=== PATIENT | female | born 1980 | race African-American/Black ===

== ENCOUNTER 2019-01-14 15:48 | Inpatient (IN) ==
[2019-01-14 16:29] LABS: Basophils % 0.2 % (0.0-0.8); Eosinophils # 0.2 10*3/uL (0.0-0.87); Eosinophils % 1.5 % (0.00-10.9); Hematocrit 29.3 VOL% (35.7-47.0); Hemoglobin 9.2 GM/DL (12.0-16.0); Immature Granulocytes % 0.4 %; Immature Granulocytes Absolute 0.04 #; Lymphocytes # 2.6 10*3/uL (1.4-4.0); Mean Corpuscular HGB Conc 31.4 GM/DL (32-36); Mean Corpuscular Volume 84.4 FL (87-102); Monocytes % 4.4 % (1.7-12.7); Neutrophils % 68.5 % (38.7-73.9); Platelet Count 312 T/CUMM (130-400); Red Blood Count 3.47 MC/CUMM (3.8-5.5); Red Cell Distribution Width 15.2 % (9.3-17.3); White Blood Count 10.3 T/CUMM (4-12)
[2019-01-14 17:04] LABS: Apearance,Urine CLOUDY (Clear); Bacteria,Urine Many /HPF (Few); Bilirubin,Urine Negative (Negative); Blood, Urine Small mg/dL (Negative); Glucose,Urine (UA) Negative (Negative); Ketones,Urine Negative (Negative); Mucus,Urine Many /LPF (Occasional); Nitrite,Urine Negative (Negative); Protein,Urine 30 MG/DL; RBC,Urine 4 /HPF (0-4); Squamous Epithelial Cell,Urine Occasional /HPF (0-10); Urine Color Yellow (Yellow); Urine Specific Gravity 1.018 (1.001-1.035); Urine Urobilinogen < 2.0 EU/DL (0.2-1.0); WBC,Urine 238 /HPF (0-6)
[2019-01-14] MEDS ORDERED: ONDANSETRON 4 MG/2 ML VIAL IV ONE ×2 (17:08→19:08)
[2019-01-14] MEDS ORDERED: MORPHINE 4 MG/1 ML VIAL IV STA (17:08)
[2019-01-14] MEDS ORDERED: cefTRIAXone 1,000 MG in SODIUM CHLORIDE 0.9% 100 ML IV STA (17:29)
[2019-01-14 18:03] LABS: Alanine Aminotransferase 23 U/L (13-56); Albumin 3.3 G/DL (3.4-5.0); Alkaline Phosphatase 98 U/L (45-117); Aspartate Amino Transferase 16 U/L (0-37); Bilirubin,Total < 0.39 MG/DL (0.2-1.0); Blood Urea Nitrogen 21 MG/DL (7-18); Calcium 8.6 MG/DL (8.5-10.1); Estimated Glom Filtration Rate 74 ML/MIN; Glucose 130 MG/DL (74-106); Osmolality,Calculated 287.1 MOS/KG (273-304); Total Protein 7.4 G/DL (6.4-8.3)
[2019-01-14] MEDS ORDERED: NITROGLYCERIN SL 0.4 MG TABLET SL STA (18:13)
[2019-01-14] MEDS ORDERED: POTASSIUM CHLORIDE 20 MEQ/15 ML UDCUP PO ONE (18:23)
[2019-01-14] MEDS ORDERED: HYDROmorphone 2 MG/1 ML VIAL IV STA (19:08)
[2019-01-14] MEDS: niCARdipine INJ 25 MG in SODIUM CHLORIDE 0.9% 240 ML IV PRN ×2 (19:36→23:34)
[2019-01-14] MEDS ORDERED: ALBUTEROL 2.5 MG/3 ML NEB RESP TX PRN (20:16)
[2019-01-14] MEDS ORDERED: ACETAMINOPHEN 325 MG TABLET PO PRN (20:16)
[2019-01-14 20:52] LABS: INR 0.9; PT Patient Result 9.5 SECS (9.6-12.2)
[2019-01-14] MEDS: SODIUM CHLORIDE 0.45% 1,000 ML IV SCH (22:03)
[2019-01-14] MEDS: ENOXAPARIN 40 MG/0.4 ML SYRINGE SUBCUT SCH (22:28)
[2019-01-14] MEDS: MORPHINE 4 MG/1 ML VIAL IV PRN (22:28)
[2019-01-14] MEDS: FAMOTIDINE 20 MG/2 ML VIAL IV SCH (22:28)
[2019-01-14 22:43] LABS: Thyroid Stimulating Hormone 2.43 uIU/ml (0.358-3.74)
[2019-01-15] MEDS ORDERED: CYCLOBENZAPRINE 10 MG TABLET PO PRN (02:06)
[2019-01-15] MEDS: niCARdipine INJ 25 MG in SODIUM CHLORIDE 0.9% 240 ML IV PRN ×3 (02:20→08:04)
[2019-01-15 05:13] LABS: Alanine Aminotransferase 24 U/L (13-56); Alkaline Phosphatase 106 U/L (45-117); Aspartate Amino Transferase 14 U/L (0-37); Bilirubin,Total < 0.39 MG/DL (0.2-1.0); Blood Urea Nitrogen 14 MG/DL (7-18); Calcium 8.4 MG/DL (8.5-10.1); Estimated Glom Filtration Rate 93 ML/MIN; Glucose 133 MG/DL (74-106); HDL Cholesterol 80 MG/DL (40-60); Osmolality,Calculated 283.3 MOS/KG (273-304); Risk Ratio 1.79; Total Protein 7.7 G/DL (6.4-8.3); Triglycerides 137 MG/DL (2-150); VLDL CHOLESTEROL 27.4 MG/DL
[2019-01-15] MEDS ORDERED: MAGNESIUM SULF RIDER 2 GM in PREMIX 1 EACH IV PRN (05:23)
[2019-01-15] MEDS ORDERED: MAGNESIUM SULF RIDER 4 GM in PREMIX 1 EACH IV PRN (05:23)
[2019-01-15] MEDS: POTASSIUM CHLORIDE 20 MEQ TABLET PO PRN ×5 (05:52→21:59)
[2019-01-15] MEDS: MORPHINE 4 MG/1 ML VIAL IV PRN ×2 (06:03→15:38)
[2019-01-15] MEDS: SODIUM CHLORIDE 0.45% 1,000 ML IV SCH ×3 (06:56→18:08)
[2019-01-15] MEDS ORDERED: ASPIRIN CHEW 81 MG TABLET PO SCH (09:00)
[2019-01-15] MEDS ORDERED: MORPHINE 4 MG/1 ML VIAL IV ONE (09:24)
[2019-01-15] MEDS ORDERED: KETOROLAC 30 MG/1 ML VIAL IV ONE (09:31)
[2019-01-15] MEDS: carvediloL 6.25 MG TABLET PO SCH ×4 (10:20→21:28)
[2019-01-15] MEDS: GABAPENTIN 100 MG CAPSULE PO SCH ×3 (10:20→21:28)
[2019-01-15] MEDS: FAMOTIDINE 20 MG/2 ML VIAL IV SCH ×2 (10:23→21:27)
[2019-01-15] MEDS: ONDANSETRON 4 MG/2 ML VIAL IV PRN (10:28)
[2019-01-15] MEDS: CYCLOBENZAPRINE 10 MG TABLET PO PRN (14:50)
[2019-01-15] MEDS: cefTRIAXone 1,000 MG in SYRINGE 1 EACH IV SCH ×3 (18:08→18:18)
[2019-01-15] MEDS: ENOXAPARIN 40 MG/0.4 ML SYRINGE SUBCUT SCH (21:27)
[2019-01-16] MEDS: carvediloL 6.25 MG TABLET PO SCH ×4 (03:59→21:10)
[2019-01-16] MEDS: SODIUM CHLORIDE 0.45% 1,000 ML IV SCH (04:04)
[2019-01-16] MEDS: MORPHINE 4 MG/1 ML VIAL IV PRN ×4 (04:14→19:36)
[2019-01-16 04:51] LABS: Basophils % 0.1 % (0.0-0.8); Eosinophils # 0.3 10*3/uL (0.0-0.87); Eosinophils % 4.2 % (0.00-10.9); Hematocrit 26.7 VOL% (35.7-47.0); Hemoglobin 8.2 GM/DL (12.0-16.0); Immature Granulocytes % 0.3 %; Immature Granulocytes Absolute 0.02 #; Lymphocytes # 2.2 10*3/uL (1.4-4.0); Lymphocytes % 31.6 % (21.3-54.2); Mean Corpuscular HGB Conc 30.7 GM/DL (32-36); Mean Corpuscular Volume 86.4 FL (87-102); Mean Platelet Volume 9.7 FL (9.6-12.0); Monocytes % 7.1 % (1.7-12.7); Neutrophils % 56.7 % (38.7-73.9); Platelet Count 277 T/CUMM (130-400); Red Blood Count 3.09 MC/CUMM (3.8-5.5); Red Cell Distribution Width 15.5 % (9.3-17.3); White Blood Count 6.9 T/CUMM (4-12)
[2019-01-16 05:20] LABS: % Iron Saturation 16.2 % (18-50); Alanine Aminotransferase 21 U/L (13-56); Albumin 2.6 G/DL (3.4-5.0); Alkaline Phosphatase 68 U/L (45-117); Aspartate Amino Transferase 15 U/L (0-37); Bilirubin,Total < 0.39 MG/DL (0.2-1.0); Blood Urea Nitrogen 13 MG/DL (7-18); Calcium 7.6 MG/DL (8.5-10.1); Estimated Glom Filtration Rate 74 ML/MIN; Glucose 86 MG/DL (74-106); Iron 47 UG/DL (50-170); Iron Binding Capacity 290 UG/DL (250-450); Osmolality,Calculated 273.7 MOS/KG (273-304); Total Protein 6.8 G/DL (6.4-8.3)
[2019-01-16] MEDS: KETOROLAC 15 MG/1 ML VIAL IV PRN ×2 (05:53→19:37)
[2019-01-16] MEDS ORDERED: MAGNESIUM SULF RIDER 2 GM in PREMIX 1 EACH IV ONE (08:16)
[2019-01-16] MEDS: GABAPENTIN 100 MG CAPSULE PO SCH ×3 (08:51→21:11)
[2019-01-16] MEDS: CYCLOBENZAPRINE 10 MG TABLET PO PRN (08:51)
[2019-01-16] MEDS: LACTATED RINGERS 1,000 ML IV SCH ×2 (08:52→19:45)
[2019-01-16] MEDS: FAMOTIDINE 20 MG/2 ML VIAL IV SCH ×2 (08:53→21:10)
[2019-01-16] MEDS: cefTRIAXone 1,000 MG in SYRINGE 1 EACH IV SCH (17:29)
[2019-01-17] MEDS: MORPHINE 4 MG/1 ML VIAL IV PRN ×2 (00:11→12:30)
[2019-01-17] MEDS: LACTATED RINGERS 1,000 ML IV SCH ×3 (03:32→23:43)
[2019-01-17 04:14] LABS: Basophils % 0.4 % (0.0-0.8); Eosinophils # 0.4 10*3/uL (0.0-0.87); Eosinophils % 5.1 % (0.00-10.9); Hematocrit 29.9 VOL% (35.7-47.0); Hemoglobin 9.3 GM/DL (12.0-16.0); Immature Granulocytes % 0.2 %; Immature Granulocytes Absolute 0.02 #; Lymphocytes # 2.5 10*3/uL (1.4-4.0); Lymphocytes % 30.8 % (21.3-54.2); Mean Corpuscular HGB Conc 31.1 GM/DL (32-36); Mean Corpuscular Volume 86.7 FL (87-102); Monocytes % 5.3 % (1.7-12.7); Neutrophils % 58.2 % (38.7-73.9); Platelet Count 268 T/CUMM (130-400); Red Blood Count 3.45 MC/CUMM (3.8-5.5); Red Cell Distribution Width 15.2 % (9.3-17.3); White Blood Count 8.1 T/CUMM (4-12)
[2019-01-17 04:40] LABS: Calcium 8.1 MG/DL (8.5-10.1); Osmolality,Calculated 276.4 MOS/KG (273-304)
[2019-01-17 04:58] LABS: INR 0.9; PT Patient Result 9.4 SECS (9.6-12.2)
[2019-01-17] MEDS: carvediloL 6.25 MG TABLET PO SCH ×3 (05:08→21:11)
[2019-01-17] MEDS: POTASSIUM CHLORIDE 20 MEQ TABLET PO PRN (05:09)
[2019-01-17] MEDS ORDERED: DIAZEPAM 5 MG TABLET PO ONE (06:00)
[2019-01-17] MEDS ORDERED: LIDOCAINE 2% TOP JELLY 5 ML TUBE TOP ONE (06:58)
[2019-01-17] MEDS ORDERED: NEOMYCIN/POLYMYXIN IRRIG SOLN 1 ML AMP BLADDERIRR ONE (07:13)
[2019-01-17] MEDS ORDERED: ALBUMIN 5% 12.5 GM/250 ML VIAL IV ONE (08:01)
[2019-01-17] MEDS ORDERED: ceFAZolin 1,000 MG VIAL ONE (08:15)
[2019-01-17] MEDS ORDERED: BUPIVACAINE 0.5% 50 ML VIAL ONE (09:38)
[2019-01-17] MEDS ORDERED: DEXAMETHASONE 4 MG/1 ML VIAL ONE ×2 (09:38→09:48)
[2019-01-17] MEDS ORDERED: EPINEPHrine 1 MG/ML VIAL ONE (09:38)
[2019-01-17] MEDS ORDERED: PROPOFOL 200 MG/20 ML VIAL IV ONE (09:46)
[2019-01-17] MEDS ORDERED: SEVOFLURANE 1 UNIT/15 MINUTE INH ONE (09:47)
[2019-01-17] MEDS ORDERED: LIDOCAINE 2% 5 ML VIAL ONE (09:47)
[2019-01-17] MEDS ORDERED: PHENYLEPHRINE DRIP 20 MG/250 ML PREMIX IV ONE (09:47)
[2019-01-17] MEDS ORDERED: MIDAZOLAM 2 MG/2 ML VIAL ONE (09:47)
[2019-01-17] MEDS ORDERED: ROCURONIUM 100 MG/10 ML VIAL IV ONE (09:48)
[2019-01-17] MEDS ORDERED: LABETALOL 100 MG/20 ML VIAL IV ONE (09:48)
[2019-01-17] MEDS ORDERED: SUFentanil 50 MCG/ML AMP ONE (09:48)
[2019-01-17] MEDS ORDERED: NEOSTIGMINE 10 MG/10 ML VIAL ONE (09:48)
[2019-01-17] MEDS ORDERED: ONDANSETRON 4 MG/2 ML VIAL ONE (09:48)
[2019-01-17] MEDS ORDERED: ACETAMINOPHEN 1,000 MG/100 ML VIAL IV ONE (09:48)
[2019-01-17] MEDS ORDERED: PHENYLEPHRINE 1 MG/10 ML SYRINGE IV ONE (09:48)
[2019-01-17] MEDS ORDERED: LACTATED RINGERS 1,000 ML IV ONE (09:48)
[2019-01-17] MEDS ORDERED: GLYCOPYRROLATE 0.4 MG/2 ML VIAL ONE (09:49)
[2019-01-17] MEDS: GABAPENTIN 100 MG CAPSULE PO SCH ×3 (10:05→21:11)
[2019-01-17] MEDS: FAMOTIDINE 20 MG/2 ML VIAL IV SCH ×2 (10:53→21:11)
[2019-01-17] MEDS: ceFAZolin 1,000 MG in SYRINGE 1 EACH IV SCH ×2 (10:58→17:05)
[2019-01-17] MEDS: ENALAPRIL 2.5 MG/2 ML VIAL IV SCH ×2 (11:10→16:24)
[2019-01-17] MEDS: METOPROLOL TARTRATE 5 MG/5 ML VIAL IV SCH ×2 (12:33→16:34)
[2019-01-17] MEDS: niCARdipine INJ 25 MG in SODIUM CHLORIDE 0.9% 240 ML IV PRN (15:18)
[2019-01-17] MEDS: KETOROLAC 15 MG/1 ML VIAL IV PRN (17:09)
[2019-01-17] MEDS: CYCLOBENZAPRINE 10 MG TABLET PO PRN (21:11)
[2019-01-17] MEDS: ONDANSETRON 4 MG/2 ML VIAL IV PRN (22:36)
[2019-01-18] MEDS: ceFAZolin 1,000 MG in SYRINGE 1 EACH IV SCH ×3 (01:31→17:46)
[2019-01-18] MEDS: KETOROLAC 15 MG/1 ML VIAL IV PRN (04:38)
[2019-01-18 04:51] LABS: Basophils % 0.1 % (0.0-0.8); Hematocrit 28.8 VOL% (35.7-47.0); Hemoglobin 9.2 GM/DL (12.0-16.0); Immature Granulocytes % 0.5 %; Immature Granulocytes Absolute 0.07 #; Lymphocytes # 0.7 10*3/uL (1.4-4.0); Lymphocytes % 5.5 % (21.3-54.2); Mean Corpuscular HGB Conc 31.9 GM/DL (32-36); Mean Corpuscular Volume 85.5 FL (87-102); Mean Platelet Volume 10.3 FL (9.6-12.0); Monocytes % 2.1 % (1.7-12.7); Neutrophils % 91.8 % (38.7-73.9); Platelet Count 277 T/CUMM (130-400); Red Blood Count 3.37 MC/CUMM (3.8-5.5); Red Cell Distribution Width 14.8 % (9.3-17.3); White Blood Count 13.2 T/CUMM (4-12)
[2019-01-18] MEDS: carvediloL 6.25 MG TABLET PO SCH (04:54)
[2019-01-18 05:18] LABS: Hypochromasia 1+; Lymphocytes 7 % (20-55); Microcytosis 1+; Ovalocytes Slight; Segmented Neutrophils 92 % (50-85); Total Cells Counted 100
[2019-01-18 05:19] LABS: Platelet Estimate Normal
[2019-01-18 05:41] LABS: Calcium 8.4 MG/DL (8.5-10.1); Osmolality,Calculated 281.4 MOS/KG (273-304)
[2019-01-18] MEDS: MORPHINE 4 MG/1 ML VIAL IV PRN ×2 (07:56→15:10)
[2019-01-18] MEDS: niCARdipine INJ 25 MG in SODIUM CHLORIDE 0.9% 240 ML IV PRN (09:12)
[2019-01-18] MEDS: carvediloL 25 MG TABLET PO SCH ×2 (10:02→20:18)
[2019-01-18] MEDS: GABAPENTIN 100 MG CAPSULE PO SCH ×3 (10:02→20:18)
[2019-01-18] MEDS: FAMOTIDINE 20 MG/2 ML VIAL IV SCH (10:03)
[2019-01-18] MEDS: MAGNESIUM HYDROXIDE SUSP 30 ML UDCUP PO PRN (10:19)
[2019-01-18] MEDS: LACTATED RINGERS 1,000 ML IV SCH ×2 (10:20→20:17)
[2019-01-18] MEDS ORDERED: MAGNESIUM HYDROXIDE SUSP 30 ML UDCUP PO SCH (12:00)
[2019-01-18] MEDS: NIFEdipine 10 MG CAPSULE PO PRN (17:46)
[2019-01-19] MEDS: ceFAZolin 1,000 MG in SYRINGE 1 EACH IV SCH ×3 (01:12→17:20)
[2019-01-19] MEDS: CYCLOBENZAPRINE 10 MG TABLET PO PRN ×2 (01:17→08:46)
[2019-01-19] MEDS: LACTATED RINGERS 1,000 ML IV SCH (05:36)
[2019-01-19 05:52] LABS: Basophils % 0.1 % (0.0-0.8); Hematocrit 24.5 VOL% (35.7-47.0); Hemoglobin 7.8 GM/DL (12.0-16.0); Immature Granulocytes % 0.6 %; Immature Granulocytes Absolute 0.08 #; Lymphocytes # 1.4 10*3/uL (1.4-4.0); Lymphocytes % 10.6 % (21.3-54.2); Mean Corpuscular HGB Conc 31.8 GM/DL (32-36); Mean Corpuscular Volume 85.7 FL (87-102); Mean Platelet Volume 10.7 FL (9.6-12.0); Monocytes % 6.4 % (1.7-12.7); Neutrophils % 82.3 % (38.7-73.9); Platelet Count 237 T/CUMM (130-400); Red Blood Count 2.86 MC/CUMM (3.8-5.5); Red Cell Distribution Width 15.3 % (9.3-17.3); White Blood Count 12.9 T/CUMM (4-12)
[2019-01-19 06:28] LABS: Calcium 8.3 MG/DL (8.5-10.1); Osmolality,Calculated 285.4 MOS/KG (273-304)
[2019-01-19] MEDS: PANTOPRAZOLE 40 MG TABLET PO SCH (08:46)
[2019-01-19] MEDS: carvediloL 25 MG TABLET PO SCH ×2 (08:46→20:35)
[2019-01-19] MEDS: GABAPENTIN 100 MG CAPSULE PO SCH ×3 (08:46→20:35)
[2019-01-19] MEDS: MAGNESIUM HYDROXIDE SUSP 30 ML UDCUP PO PRN ×2 (08:47→20:35)
[2019-01-19] MEDS: NIFEdipine 10 MG CAPSULE PO PRN (11:55)
[2019-01-19] MEDS ORDERED: CYCLOBENZAPRINE 10 MG TABLET PO PRN (12:17)
[2019-01-19] MEDS: hydrALAZINE 25 MG TABLET PO SCH ×3 (16:14→20:35)
[2019-01-19] MEDS ORDERED: SPIRONOLACTONE 25 MG TABLET PO SCH (16:49)
[2019-01-19] MEDS: LOSARTAN 50 MG TABLET PO SCH ×2 (17:20→21:13)
[2019-01-19] MEDS: IRON (CARBONYL) 45 MG TABLET PO SCH ×2 (17:20→20:35)
[2019-01-19] MEDS: SPIRONOLACTONE 25 MG TABLET PO SCH (17:20)
[2019-01-20] MEDS: ceFAZolin 1,000 MG in SYRINGE 1 EACH IV SCH ×2 (01:14→10:34)
[2019-01-20 07:44] VITALS: BP 124/76
[2019-01-20] MEDS ORDERED: MAGNESIUM CITRATE 300 ML BOTTLE PO ONE (07:55)
[2019-01-20 08:36] LABS: Calcium 8.3 MG/DL (8.5-10.1); Osmolality,Calculated 281.4 MOS/KG (273-304)
[2019-01-20] MEDS: PANTOPRAZOLE 40 MG TABLET PO SCH (08:45)
[2019-01-20] MEDS: SPIRONOLACTONE 25 MG TABLET PO SCH (08:45)
[2019-01-20] MEDS: carvediloL 25 MG TABLET PO SCH (08:45)
[2019-01-20] MEDS: IRON (CARBONYL) 45 MG TABLET PO SCH (08:45)
[2019-01-20] MEDS: LOSARTAN 50 MG TABLET PO SCH (08:46)
[2019-01-20] MEDS: GABAPENTIN 100 MG CAPSULE PO SCH (08:46)
[2019-01-20] MEDS: hydrALAZINE 25 MG TABLET PO SCH (08:46)
== END 2019-01-20 11:51 | disposition home or self-care (01) | DRG 742 ==
LOC: N.ED 15:48 → SUATTDRO 20:15 → N.EDINP 20:15 → N.CC 20:55 → N.5E 01-18 16:31
PROVIDERS: ADMIT Family Medicine; ATTEND Internal Medicine

== ENCOUNTER 2022-06-12 16:07 | Inpatient (IN) ==
[2022-06-12] MEDS ORDERED: NITROGLYCERIN 2% OINT 1 INCH/GM PACK TOP STA (16:56)
[2022-06-12] MEDS ORDERED: MORPHINE 2 MG/1 ML SYRINGE IV ONE (16:56)
[2022-06-12] MEDS ORDERED: LABETALOL 20 MG/4 ML SYRINGE IV STA ×2 (16:56→17:21)
[2022-06-12] MEDS ORDERED: ASPIRIN 325 MG TABLET PO STA (16:56)
[2022-06-12] MEDS ORDERED: ONDANSETRON 4 MG/2 ML VIAL IV ONE (16:56)
[2022-06-12 17:02] LABS: Basophils % 0.2 % (0.0-0.8); Eosinophils # 0.1 10*3/uL (0.0-0.87); Eosinophils % 1.2 % (0.00-10.9); Hematocrit 31.2 VOL% (35.7-47.0); Hemoglobin 9.5 GM/DL (12.0-16.0); Immature Granulocytes % 0.4 %; Immature Granulocytes Absolute 0.04 #; Mean Corpuscular HGB Conc 30.4 GM/DL (32-36); Mean Corpuscular Volume 85.5 FL (87-102); Mean Platelet Volume 10.6 FL (9.6-12.0); Monocytes # 0.8 10*3/uL (0.11-0.8); Monocytes % 7.7 % (1.7-12.7); Neutrophils % 60.5 % (38.7-73.9); Platelet Count 333 T/CUMM (130-400); Red Blood Count 3.65 MC/CUMM (3.8-5.5); Red Cell Distribution Width 16.1 % (9.3-17.3); White Blood Count 9.88 T/CUMM (4-12)
[2022-06-12 17:10] LABS: INR 0.9; PT Patient Result 9.9 SECS (10.1-12.1)
[2022-06-12] MEDS ORDERED: cloNIDine 0.1 MG TABLET PO STA (17:21)
[2022-06-12 17:29] LABS: Alanine Aminotransferase 29 U/L (13-56); Albumin 3.4 G/DL (3.4-5.0); Alkaline Phosphatase 109 U/L (45-117); Aspartate Amino Transferase 18 U/L (0-37); Bilirubin,Total < 0.39 MG/DL (0.20-1.00); Blood Urea Nitrogen 26 MG/DL (7-18); Calcium 9.3 MG/DL (8.5-10.1); Carbon Dioxide 27 MMOL/L (21-32); Chloride 109 MMOL/L (98-107); Glucose 92 MG/DL (74-106); Potassium 3.6 MMOL/L (3.5-5.1); Sodium 143 MMOL/L (136-145)
[2022-06-12] MEDS ORDERED: ONDANSETRON 4 MG/2 ML VIAL IV PRN (19:05)
[2022-06-12] MEDS ORDERED: NALOXONE 0.4 MG/ML VIAL IV PRN (19:05)
[2022-06-12] MEDS ORDERED: PROMETHAZINE 25 MG TABLET PO PRN (19:05)
[2022-06-12] MEDS ORDERED: ENOXAPARIN 100 MG/ML SYRINGE SUBCUT STA (19:05)
[2022-06-12] MEDS: ENOXAPARIN 40 MG/0.4 ML SYRINGE SUBCUT SCH (21:53)
[2022-06-12] MEDS: DOCUSATE SODIUM 100 MG CAPSULE PO SCH (22:03)
[2022-06-12] MEDS: ACETAMINOPHEN 325 MG TABLET PO PRN (22:05)
[2022-06-13] MEDS: MORPHINE 2 MG/1 ML SYRINGE IV PRN ×2 (05:37→18:28)
[2022-06-13 05:50] LABS: Basophils % 0.3 % (0.0-0.8); Eosinophils # 0.2 10*3/uL (0.0-0.87); Eosinophils % 2.4 % (0.00-10.9); Hematocrit 25.3 VOL% (35.7-47.0); Hemoglobin 7.9 GM/DL (12.0-16.0); Immature Granulocytes % 0.1 %; Immature Granulocytes Absolute 0.01 #; Lymphocytes # 3.3 10*3/uL (1.4-4.0); Lymphocytes % 41.4 % (21.3-54.2); Mean Corpuscular HGB Conc 31.2 GM/DL (32-36); Mean Corpuscular Volume 85.5 FL (87-102); Mean Platelet Volume 10.5 FL (9.6-12.0); Monocytes # 0.6 10*3/uL (0.11-0.8); Monocytes % 7.2 % (1.7-12.7); Neutrophils % 48.6 % (38.7-73.9); Platelet Count 252 T/CUMM (130-400); Red Blood Count 2.96 MC/CUMM (3.8-5.5); Red Cell Distribution Width 16.1 % (9.3-17.3); White Blood Count 7.94 T/CUMM (4-12)
[2022-06-13 06:11] LABS: Alanine Aminotransferase 21 U/L (13-56); Albumin 2.7 G/DL (3.4-5.0); Alkaline Phosphatase 89 U/L (45-117); Aspartate Amino Transferase 15 U/L (0-37); Bilirubin,Total < 0.39 MG/DL (0.20-1.00); Blood Urea Nitrogen 27 MG/DL (7-18); Calcium 8.9 MG/DL (8.5-10.1); Carbon Dioxide 28 MMOL/L (21-32); Chloride 109 MMOL/L (98-107); Glucose 120 MG/DL (74-106); Osmolality,Calculated 288.1 MOS/KG (273-304); Potassium 3.2 MMOL/L (3.5-5.1); Sodium 142 MMOL/L (136-145); Total Protein 6.4 G/DL (6.4-8.2)
[2022-06-13] MEDS: PANTOPRAZOLE 40 MG TABLET PO SCH (08:05)
[2022-06-13] MEDS: DOCUSATE SODIUM 100 MG CAPSULE PO SCH ×2 (08:05→21:17)
[2022-06-13] MEDS: ACETAMINOPHEN 325 MG TABLET PO PRN (08:34)
[2022-06-13] MEDS ORDERED: cloNIDine 0.1 MG TABLET PO PRN ×2 (09:14→10:10)
[2022-06-13] MEDS ORDERED: PROMETHAZINE 25 MG TABLET PO PRN (09:30)
[2022-06-13] MEDS ORDERED: carvediloL 25 MG TABLET PO SCH (09:30)
[2022-06-13 10:29] LABS: Risk Ratio 2.2; VLDL Cholesterol 19.6 MG/DL
[2022-06-13] MEDS: POTASSIUM CHLORIDE 20 MEQ TABLET PO SCH (10:31)
[2022-06-13 10:35] LABS: Folate 7.14 NG/ML (5.38-24.0)
[2022-06-13 10:43] LABS: % Iron Saturation 11.7 % (18-50); Ferritin 67.4 ng/mL (8-252)
[2022-06-13] MEDS ORDERED: ALBUTEROL 2.5 MG/3 ML NEB RESP TX PRN (11:00)
[2022-06-13] MEDS: hydrALAZINE 25 MG TABLET PO SCH ×2 (14:44→21:17)
[2022-06-13] MEDS: ENOXAPARIN 40 MG/0.4 ML SYRINGE SUBCUT SCH (21:17)
[2022-06-13] MEDS: NEBIVOLOL 10 MG TABLET PO SCH (21:17)
[2022-06-13] MEDS: guaiFENesin/CODEINE 5 ML LIQUID PO PRN (21:21)
[2022-06-14 06:03] LABS: Basophils % 0.3 % (0.0-0.8); Eosinophils # 0.2 10*3/uL (0.0-0.87); Eosinophils % 1.5 % (0.00-10.9); Hematocrit 29.1 VOL% (35.7-47.0); Hemoglobin 8.9 GM/DL (12.0-16.0); Immature Granulocytes % 0.3 %; Immature Granulocytes Absolute 0.03 #; Lymphocytes # 2.3 10*3/uL (1.4-4.0); Mean Corpuscular HGB Conc 30.6 GM/DL (32-36); Mean Corpuscular Volume 86.1 FL (87-102); Mean Platelet Volume 10.9 FL (9.6-12.0); Monocytes # 0.5 10*3/uL (0.11-0.8); Monocytes % 5.2 % (1.7-12.7); Neutrophils % 68.7 % (38.7-73.9); Platelet Count 301 T/CUMM (130-400); Red Blood Count 3.38 MC/CUMM (3.8-5.5); Red Cell Distribution Width 16.1 % (9.3-17.3)
[2022-06-14 06:21] LABS: Calcium 9.3 MG/DL (8.5-10.1); Osmolality,Calculated 289.1 MOS/KG (273-304); Potassium 4.2 MMOL/L (3.5-5.1)
[2022-06-14] MEDS: POTASSIUM CHLORIDE 20 MEQ TABLET PO SCH (08:50)
[2022-06-14] MEDS: NEBIVOLOL 10 MG TABLET PO SCH ×2 (08:50→21:12)
[2022-06-14] MEDS: hydrALAZINE 25 MG TABLET PO SCH (08:50)
[2022-06-14] MEDS: DOCUSATE SODIUM 100 MG CAPSULE PO SCH ×2 (08:50→21:12)
[2022-06-14] MEDS: guaiFENesin/CODEINE 5 ML LIQUID PO PRN (08:52)
[2022-06-14] MEDS: PANTOPRAZOLE 40 MG TABLET PO SCH (08:52)
[2022-06-14 12:37] VITALS: BP 164/114
[2022-06-14] MEDS ORDERED: traMADol 50 MG TABLET PO PRN (12:39)
[2022-06-14] MEDS: busPIRone 5 MG TABLET PO SCH ×2 (13:13→21:13)
[2022-06-14] MEDS: BENZONATATE 100 MG CAPSULE PO PRN ×2 (15:40→21:12)
[2022-06-14] MEDS ORDERED: ALBUTEROL/IPRATROPIUM 3 ML NEB RESP TX PRN (17:14)
[2022-06-14] MEDS ORDERED: ALPRAZolam 0.25 MG TABLET PO PRN (17:39)
[2022-06-14] MEDS ORDERED: LORazepam 2 MG/1 ML VIAL IV PRN (17:45)
[2022-06-14] MEDS ORDERED: FUROSEMIDE 40 MG/4 ML VIAL IV ONE ×2 (17:47→18:14)
[2022-06-14] MEDS: methylPREDNISolone SOD SUC 40 MG/1 ML VIAL IV SCH (18:02)
[2022-06-14] MEDS ORDERED: hydrALAZINE 20 MG/1 ML VIAL ONE (18:22)
[2022-06-14] MEDS ORDERED: GLUCAGON 1 MG VIAL IM PRN (18:23)
[2022-06-14] MEDS ORDERED: DEXTROSE 10% 250 ML BAG IV PRN (18:23)
[2022-06-14] MEDS ORDERED: hydrALAZINE 20 MG/1 ML VIAL IV ONE (18:25)
[2022-06-14 18:27] LABS: Arterial Base Excess iSTAT 0 MMOL/L (-2.5-2.5); Arterial Bicarbonate iSTAT 26.5 MMOL/L (20-26); Arterial O2 Saturation iSTAT 99 % (95-100); Arterial PCO2 iSTAT 52 MM HG (35-48); Arterial PO2 iSTAT 179 MM HG (80-95); Arterial Total CO2 iSTAT 28 MMO/L (23-27); Arterial pH iSTAT 7.317 (7.35-7.45)
[2022-06-14] MEDS: niCARdipine INJ 25 MG in SODIUM CHLORIDE 0.9% 240 ML IV PRN ×2 (18:34→21:11)
[2022-06-14 19:11] LABS: Bilirubin,Urine Negative (Negative); Blood, Urine Negative (Negative); Glucose,Urine (UA) Negative (Negative); Ketones,Urine Negative (Negative); Nitrite,Urine Negative (Negative); Protein,Urine 30 mg/dL (Negative); Urine Appearance Clear (Clear); Urine Color Yellow (Yellow); Urine Urobilinogen 0.2 eU/dL (<2.0)
[2022-06-14 19:12] LABS: Mucus,Urine Occasional /LPF (Occasional); RBC,Urine 1 /HPF (0-4)
[2022-06-14 20:07] LABS: Basophils % 0.2 % (0.0-0.8); Hematocrit 33.8 VOL% (35.7-47.0); Hemoglobin 10.7 GM/DL (12.0-16.0); Immature Granulocytes % 1.3 %; Immature Granulocytes Absolute 0.24 #; Lymphocytes # 1.4 10*3/uL (1.4-4.0); Lymphocytes % 7.6 % (21.3-54.2); Mean Corpuscular HGB Conc 31.7 GM/DL (32-36); Mean Platelet Volume 10.5 FL (9.6-12.0); Monocytes # 0.4 10*3/uL (0.11-0.8); Neutrophils % 88.9 % (38.7-73.9); Platelet Count 377 T/CUMM (130-400); Red Blood Count 4.07 MC/CUMM (3.8-5.5); White Blood Count 19.05 T/CUMM (4-12)
[2022-06-14] MEDS: MORPHINE 2 MG/1 ML SYRINGE IV PRN (20:09)
[2022-06-14 20:25] LABS: Albumin 3.4 G/DL (3.4-5.0); Bilirubin,Total 0.4 MG/DL (0.20-1.00); Calcium 8.9 MG/DL (8.5-10.1); Osmolality,Calculated 285.5 MOS/KG (273-304); Total Protein 8.6 G/DL (6.4-8.2)
[2022-06-14] MEDS: INSULIN LISPRO 100 UNIT/ML SUBCUT SCH (21:16)
[2022-06-14] MEDS: ENOXAPARIN 40 MG/0.4 ML SYRINGE SUBCUT SCH (21:17)
[2022-06-14 23:23] LABS: Arterial Base Excess iSTAT 2 MMOL/L (-2.5-2.5); Arterial O2 Saturation iSTAT 100 % (95-100); Arterial PCO2 iSTAT 39 MM HG (35-48); Arterial PO2 iSTAT 190 MM HG (80-95); Arterial Total CO2 iSTAT 27 MMO/L (23-27); Arterial pH iSTAT 7.432 (7.35-7.45)
[2022-06-15] MEDS: methylPREDNISolone SOD SUC 40 MG/1 ML VIAL IV SCH ×4 (00:14→17:34)
[2022-06-15 03:46] LABS: Basophils % 0.1 % (0.0-0.8); Hematocrit 30.5 VOL% (35.7-47.0); Hemoglobin 9.6 GM/DL (12.0-16.0); Immature Granulocytes % 0.6 %; Immature Granulocytes Absolute 0.08 #; Lymphocytes # 1.4 10*3/uL (1.4-4.0); Lymphocytes % 9.9 % (21.3-54.2); Mean Corpuscular HGB Conc 31.5 GM/DL (32-36); Mean Corpuscular Volume 83.3 FL (87-102); Mean Platelet Volume 10.5 FL (9.6-12.0); Monocytes # 0.1 10*3/uL (0.11-0.8); Monocytes % 0.7 % (1.7-12.7); Neutrophils % 88.7 % (38.7-73.9); Platelet Count 330 T/CUMM (130-400); Red Blood Count 3.66 MC/CUMM (3.8-5.5)
[2022-06-15 03:53] LABS: Calcium 8.7 MG/DL (8.5-10.1); Osmolality,Calculated 292.1 MOS/KG (273-304); Potassium 3.7 MMOL/L (3.5-5.1)
[2022-06-15 04:09] LABS: % Iron Saturation 9.9 % (18-50); Ferritin 138.2 ng/mL (8-252)
[2022-06-15] MEDS: INSULIN LISPRO 100 UNIT/ML SUBCUT SCH ×4 (08:02→20:32)
[2022-06-15] MEDS: DOCUSATE SODIUM 100 MG CAPSULE PO SCH ×2 (08:22→20:27)
[2022-06-15] MEDS: busPIRone 5 MG TABLET PO SCH ×2 (08:22→20:27)
[2022-06-15] MEDS: PANTOPRAZOLE 40 MG TABLET PO SCH (08:22)
[2022-06-15] MEDS: POTASSIUM CHLORIDE 20 MEQ TABLET PO SCH (08:22)
[2022-06-15] MEDS: NEBIVOLOL 10 MG TABLET PO SCH ×2 (08:24→20:27)
[2022-06-15] MEDS: ACETAMINOPHEN 325 MG TABLET PO PRN (10:21)
[2022-06-15] MEDS: MORPHINE 2 MG/1 ML SYRINGE IV PRN (12:00)
[2022-06-15] MEDS: ENOXAPARIN 40 MG/0.4 ML SYRINGE SUBCUT SCH (20:27)
[2022-06-15] MEDS: guaiFENesin/CODEINE 5 ML LIQUID PO PRN (20:32)
[2022-06-16 03:22] LABS: Arterial Base Excess iSTAT 0 MMOL/L (-2.5-2.5); Arterial Bicarbonate iSTAT 24.5 MMOL/L (20-26); Arterial O2 Saturation iSTAT 98 % (95-100); Arterial PCO2 iSTAT 36 MM HG (35-48); Arterial PO2 iSTAT 102 MM HG (80-95); Arterial Total CO2 iSTAT 26 MMO/L (23-27); Arterial pH iSTAT 7.438 (7.35-7.45)
[2022-06-16 03:33] LABS: Basophils % 0.1 % (0.0-0.8); Hematocrit 27.5 VOL% (35.7-47.0); Hemoglobin 8.6 GM/DL (12.0-16.0); Immature Granulocytes % 0.7 %; Immature Granulocytes Absolute 0.11 #; Lymphocytes # 1.5 10*3/uL (1.4-4.0); Mean Corpuscular HGB Conc 31.3 GM/DL (32-36); Mean Corpuscular Volume 84.9 FL (87-102); Mean Platelet Volume 10.6 FL (9.6-12.0); Monocytes # 0.6 10*3/uL (0.11-0.8); Monocytes % 3.7 % (1.7-12.7); Neutrophils % 86.5 % (38.7-73.9); Platelet Count 297 T/CUMM (130-400); Red Blood Count 3.24 MC/CUMM (3.8-5.5); Red Cell Distribution Width 16.5 % (9.3-17.3); White Blood Count 16.72 T/CUMM (4-12)
[2022-06-16 03:47] LABS: Calcium 8.9 MG/DL (8.5-10.1); Osmolality,Calculated 294.4 MOS/KG (273-304)
[2022-06-16] MEDS: methylPREDNISolone SOD SUC 40 MG/1 ML VIAL IV SCH ×5 (05:12→21:13)
[2022-06-16] MEDS: INSULIN LISPRO 100 UNIT/ML SUBCUT SCH ×4 (08:30→21:01)
[2022-06-16] MEDS: PANTOPRAZOLE 40 MG TABLET PO SCH (08:31)
[2022-06-16] MEDS: POTASSIUM CHLORIDE 20 MEQ TABLET PO SCH (08:31)
[2022-06-16] MEDS: FERROUS SULFATE 325 MG TABLET PO SCH (08:31)
[2022-06-16] MEDS: DOCUSATE SODIUM 100 MG CAPSULE PO SCH ×2 (08:31→20:59)
[2022-06-16] MEDS: busPIRone 5 MG TABLET PO SCH ×2 (08:31→20:58)
[2022-06-16] MEDS: NEBIVOLOL 10 MG TABLET PO SCH ×2 (08:31→20:58)
[2022-06-16] MEDS: ENOXAPARIN 40 MG/0.4 ML SYRINGE SUBCUT SCH (20:59)
[2022-06-16] MEDS ORDERED: MONTELUKAST 10 MG TABLET PO SCH (21:00)
[2022-06-17] MEDS: methylPREDNISolone SOD SUC 40 MG/1 ML VIAL IV SCH (06:30)
[2022-06-17 06:34] LABS: Basophils % 0.1 % (0.0-0.8); Hematocrit 30.2 VOL% (35.7-47.0); Hemoglobin 9.2 GM/DL (12.0-16.0); Immature Granulocytes % 1.6 %; Immature Granulocytes Absolute 0.27 #; Lymphocytes # 1.7 10*3/uL (1.4-4.0); Mean Corpuscular HGB Conc 30.5 GM/DL (32-36); Mean Corpuscular Volume 84.6 FL (87-102); Mean Platelet Volume 10.5 FL (9.6-12.0); Monocytes # 0.6 10*3/uL (0.11-0.8); Monocytes % 3.6 % (1.7-12.7); NRBC # 0.02 10*3/uL; Neutrophils % 84.7 % (38.7-73.9); Platelet Count 310 T/CUMM (130-400); Red Blood Count 3.57 MC/CUMM (3.8-5.5); Red Cell Distribution Width 16.5 % (9.3-17.3); White Blood Count 17.34 T/CUMM (4-12)
[2022-06-17 06:58] LABS: Calcium 9.2 MG/DL (8.5-10.1); Osmolality,Calculated 293.5 MOS/KG (273-304); Potassium 3.8 MMOL/L (3.5-5.1)
[2022-06-17] MEDS ORDERED: methylPREDNISolone SOD SUC 40 MG/1 ML VIAL IV SCH (09:30)
[2022-06-17] MEDS: NEBIVOLOL 10 MG TABLET PO SCH (09:34)
[2022-06-17] MEDS: FERROUS SULFATE 325 MG TABLET PO SCH (09:34)
[2022-06-17] MEDS: PANTOPRAZOLE 40 MG TABLET PO SCH (09:34)
[2022-06-17] MEDS: busPIRone 5 MG TABLET PO SCH (09:34)
[2022-06-17] MEDS: DOCUSATE SODIUM 100 MG CAPSULE PO SCH (09:34)
[2022-06-17] MEDS: POTASSIUM CHLORIDE 20 MEQ TABLET PO SCH (09:34)
[2022-06-17] MEDS: INSULIN LISPRO 100 UNIT/ML SUBCUT SCH (09:58)
== END 2022-06-17 12:51 | disposition home or self-care (01) | DRG 304 ==
LOC: N.EDINP 16:07 → N.ED 16:07 → SUATTDRO 19:05 → N.EDINP 20:38 → N.2W 20:49 → SUATTDRO 06-14 16:58 → N.CC 06-14 18:22
PROVIDERS: ADMIT Family Medicine; ATTEND Family Medicine